=== PATIENT | male | born 1935 | race Caucasian/White ===

== ENCOUNTER → 2020-05-15 09:33 | Outpatient (CLI) | payer MEDICARE, SELFPAY ==
--- NOTE | ~2020-05-15 | US_ITS ---
EXAMINATION: US aorta [facility] scr[facility] DATE: 05/15/2020 09:48 INDICATION: Abdominal aortic aneurysm screening. TECHNIQUE: Grayscale, color Doppler, and pulsed Doppler images of the aorta and common iliac arteries were obtained. COMPARISON: None. FINDINGS: The aorta is normal in caliber. The right common iliac artery is normal in caliber. The left common i liac artery is normal in caliber. IMPRESSION: 1. No abdominal aortic aneurysm. Reviewed, dictated and finalized at location A. [facility]OV[facility]ER
== END ==
DX: Z13.6 Encounter for screening for cardiovascular disorders (principal)
CPT/HCPCS: 76706